=== PATIENT | female | born 1970 | race Native Hawaiian/Other Pacific Islander ===

== ENCOUNTER 2019-10-12 13:45 | Outpatient (CLI) | payer OTHER ==
[2019-10-12 14:18] LABS: PLATELET COUNT 134 K/uL (152-353)
[2019-10-12 14:42] LABS: POTASSIUM 3.2 mmol/L (3.6-5.2)
== END 2019-10-12 22:07 | disposition home or self-care (01) ==
LOC: RAD 13:45
PROVIDERS: Internal Medicine
DX: U07.1 COVID-19 (principal)
CPT/HCPCS: 36415; 80053; 84443; 85027

== ENCOUNTER 2019-11-07 16:17 | Outpatient (CLI) | payer OTHER | END 2019-11-07 21:54 | disposition home or self-care (01) | LOC: RAD 16:17 | DX: J40 Bronchitis, not specified as acute or chronic (principal) ==

== ENCOUNTER 2019-11-08 12:49 | Outpatient (CLI) | payer OTHER | END 2019-11-08 22:25 | disposition home or self-care (01) | LOC: LAB 12:49 → LABW 12:49 → LAB 22:25 | DX: U07.1 COVID-19 (principal) | CPT/HCPCS: 36415; 86769 ==